=== PATIENT | male | born 1960 | race Caucasian/White ===

== ENCOUNTER 2023-03-14 21:42 | Emergency (ER) | payer BC ==
[~2023-03-14] VITALS: Ht 167.6 cm; Wt 65.8 kg
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
--- NOTE | 2023-03-14 22:16 | NUR ---
AMIR ([facility]) [phone]
--- NOTE | 2023-03-14 22:16 | NUR ---
AT BEDSIDE FOR EVAL
[2023-03-14] MEDS ORDERED: HYDROCODONE/APAP 5/325MG TABLET ONE (22:30)
[2023-03-14] MEDS ORDERED: HYDROCODONE/APAP 5/325MG TABLET PO ONE (22:30)
--- NOTE | 2023-03-14 22:40 | NUR ---
PATIENT TAKEN TO CT VIA [facility]
[2023-03-14] MEDS ORDERED: CARI350T PO (23:23)
[2023-03-14] MEDS ORDERED: IBUP-1957 PO (23:23)
[2023-03-14] MEDS ORDERED: PRED50TA PO (23:23)
[2023-03-14] MEDS ORDERED: HYDR-3972 PO (23:23)
--- NOTE | 2023-03-14 23:29 | NUR ---
Patient discharged to home in stable condition. Written and verbal after care instructions given. Patient AND SON verbalizes understanding of instruction.
[2023-03-14 23:30] VITALS: BP 130/78
== END 2023-03-14 23:31 | disposition home or self-care (01) ==
LOC: ER 21:53
DX: S16.1XXA Strain of muscle, fascia and tendon at neck level, initial encounter (principal); M62.838 Other muscle spasm; V89.2XXA Person injured in unspecified motor-vehicle accident, traffic, initial encounter; Y93.89 Activity, other specified; Y92.89 Other specified places as the place of occurrence of the external cause; Y99.8 Other external cause status
CPT/HCPCS: 72125-TC